=== PATIENT | male | born 1970 | race Caucasian/White ===

== ENCOUNTER 2017-03-20 18:43 | Emergency (ER) | payer MEDICARE ==
[2017-03-20] MEDS ORDERED: Adacel (T-DAP) 0.5 ML VIAL ONE (21:22)
== END 2017-03-20 21:35 | disposition home or self-care (01) ==
LOC: ERS 18:43
DX: T22.211A Burn of second degree of right forearm, initial encounter (principal); T31.0 Burns involving less than 10% of body surface; I10 Essential (primary) hypertension; F41.9 Anxiety disorder, unspecified; F17.210 Nicotine dependence, cigarettes, uncomplicated; X08.8XXA Exposure to other specified smoke, fire and flames, initial encounter
CPT/HCPCS: 90471; 90715